=== PATIENT | male | born 1980 | race Caucasian/White ===

== ENCOUNTER 2019-12-10 05:05 | Observation (INO) ==
--- OUTSIDE RECORDS SUMMARY | 2019-12-10 05:07 | External Medical Summary | Continuity of Care Document ---
:1980 Author Name Aditya Rosales, Provider Address Unavailable Unavailable , Care Team Providers Name Role Phone Anaid Dutton Unavailable [email or web address], [email or web address] Unavailable Unavailable Problems Active medical history not documented Allergies and Adverse Reactions Allergy history not documented Medications Medications not documented Procedures Procedures not documented Immunizations Immunizations not documented Plan of Treatment Planned Observations Planned Goals not documented Results No Known Results Results not documented Encounters Appointment; Anaid Barry CRNP 27-Mar-2018 13:15 Encounter Diagnosis: Problem not documented
--- OUTSIDE RECORDS SUMMARY | 2019-12-10 05:08 | External Medical Summary | Continuity of Care Document ---
:1980 Author Name Aditya Rosales, Provider Address Unavailable Unavailable , Care Team Providers Name Role Phone Anaid Dutton Unavailable [email or web address] PCP, UNKNOWN Unavailable Unavailable Problems Active medical [...]
[2019-12-10] MEDS ORDERED: ONDANSETRON INJ 2 MG/ML 2 ML VIAL IV STA (05:30)
[2019-12-10] MEDS ORDERED: SODIUM CHLORIDE 0.9% 1000ML 1,000 ML IV ONE (05:30)
[2019-12-10] MEDS ORDERED: MoRPHine SULFATE 10 MG/ML CARP/VIAL IV STA (05:30)
[2019-12-10 05:49] LABS: Basophils # (auto) 0.02 K/uL (0-0.2); Basophils % (auto) 0.2 %; Eosinophils # (auto) 0.11 K/uL (0-0.5); Eosinophils % (auto) 0.9 %; Hematocrit (blood only) 42.6 % (42-52); Hemoglobin 14.7 g/dL (14.0-18.0); Immature Granulocytes # (auto) 0.03 K/uL (0.00-0.02); Immature Granulocytes % (auto) 0.2 %; Lymphocytes # (auto) 1.39 K/uL (1.2-3.4); Lymphocytes % (auto) 11.6 %; Mean Corpuscular Hemoglobin 29.2 pg (25-34); Mean Corpuscular Hgb Conc 34.5 g/dL (32-36); Mean Corpuscular Volume 84.7 fL (80-100); Mean Platelet Volume 9.3 fL (7.4-10.4); Neutrophils # (auto) 9.87 K/uL (1.4-6.5); Neutrophils % (auto) 82.1 %; Platelet Count 246 K/uL (130-400); RDW Coefficient of Variation 13.5 % (11.5-14.5); RDW Standard Deviation 41.1 fL (36.4-46.3); Red Blood Count 5.03 M/uL (4.7-6.1); White Blood Count 12.02 K/uL (4.8-10.8)
--- NOTE | 2019-12-10 05:55 | Emergency Department Note ---
History of Present Illness General Chief complaint: Abdominal Pain Stated complaint: SEVERE STOMACH PAIN AND BLOATING Time Seen by Provider: 12/10/19 05:12 Source: patient Mode of arrival: ambulatory Limitations: no limitations History of Present Illness Maximum Pain Intensity: 8 This patient is a 39-year-old male who presents to the emergency department for evaluation of abdominal pain. Patient states that he has had abdominal pain and bloating for the past 5 hours. He states that he feels like he has to vomit or have a bowel movement but is unable to do either. He rates his discomfort an 8/10. He states that he has had similar episode of pain in the past, but states it usually subsides after a few hours. He does report an umbilical hernia but states he has not had this checked out as he does not have a primary care provider. He states he ate a normal dinner of noodles last night prior to onset of symptoms. He denies any urinary symptoms, fever/chills, chest pain or shortness of breath. Home Medications Home Medications Medication Instructions Recorded Confirmed Type No Known Home Medications 12/10/19 12/10/19 History Allergies Allergy/AdvReac Type Severity Reaction Status Date / Time No Known Allergies Allergy Verified 12/10/19 05:41 Past Med/Surg History Medical History Anal fistula No significant past medical history Social History Preferred Language: Cape Verdean Feels Safe at Home: Yes Smoking Status: Never smoker Review of Systems A total of 10 systems reviewed and were otherwise negative Physical Exam Vital Signs Vital Signs - 24 hr 12/10/19 05:09 12/10/19 06:11 Temperature 36.7 C Temperature Source Oral Pulse Rate 80 Pulse Rate [Finger] 81 Respiratory Rate 16 18 Respiratory Effort / Characteristics Non-Labored Spontaneous Respiratory Depth Normal Normal Blood Pressure 144/101 H Blood Pressure [Left Arm] 146/91 H Blood Pressure Mean 115 Blood Pressure Mean [Left Arm] 109 Pulse Oximetry 96 94 Oxygen Delivery Method Room Air Room Air Sepsis Recent Fever Within 48 Hours No Sepsis New/Unexplained Change in Mental Status No Sepsis Action Taken by Nursing No Action Required VITALS: Vitals are noted on the nurse's note and reviewed by myself. GENERAL: This is a 39-year-old male, uncomfortable appearing, well-developed well-nourished. SKIN: Warm and dry without rashes. EARS: External auditory canals clear, tympanic membranes pearly montez without e rythema or effusion bilaterally. EYES: Pupils equal round and reactive to light and accommodation. No scleral icterus. MOUTH: Mucous membranes moist. Tonsils are not enlarged. Pharynx without eryth toya or exudate. NECK: Supple without nuchal rigidity. No lymphadenopathy. HEART: Regular rate and rhythm without murmurs gallops or rubs. LUNGS: Clear to auscultation bilaterally without wheezes, rales or rhonchi. ABDOMEN: There is a large, tender and slightly hardened umbilical hernia which is somewhat erythematous/dusky appearing. Hypoactive bowel sounds throughout. Mild tenderness to palpation throughout the abdomen. NEURO: Patient was alert and oriented to person place and time. Course Consultations Consultation #1: Brendon Lutz PA-C - General surgery Administered Medications Ioversol (Optiray 320 100ml) 100 ml IV ONCE PRN PRN Reason: Interaction Checking Stop: 12/14/19 06:07 Last Admin: 12/10/19 06:08 Dose: 93 ml Documented by: [id number] Discontinued Medications Hydromorphone HCl (Dilaudid) 1 mg IV NOW STA Stop: 12/10/19 06:59 Last Admin: 12/10/19 07:05 Dose: 1 mg Documented by: [id number] Sodium Chloride (Nss 1000ml) 1,000 mls @ 999 mls/hr IV .Q1H1M ONE Stop: 12/10/19 06:30 Last Infusion: 12/10/19 07:07 Dose: 0 mls/hr Documented by: [id number] Admin: 12/10/19 06:10 Dose: 999 mls/hr Documented by: [id number] Morphine Sulfate (Morphine Sulfate) 6 mg IV NOW STA Stop: 12/10/19 05:31 Last Admin: 12/10/19 05:51 Dose: 6 mg Documented by: [id number] Ondansetron HCl (Zofran) 4 mg IV NOW STA Stop: 12/10/19 05:31 Last Admin: 12/10/19 05:49 Dose: 4 mg Documented by: [id number] Medical Decision Making Differential Diagnosis Differential diagnosis includes incarcerated hernia, irreducible hernia, bowel obstruction, diverticulitis, appendicitis, gastroenteritis, among others. Home Medications Current Medication List: was personally reviewed by me Laboratory Data Attestation: I reviewed the patient's lab results. Result diagrams: 12/10/19 05:39 12/10/19 05:39 Lab Results 12/10/19 12/10/19 12/10/19 Range/Units 05:39 05:39 05:44 WBC 12.02 H (4.8-10.8) K/uL RBC 5.03 (4.7-6.1) M/uL Hgb 14.7 (14.0-18.0) g/dL POC Hgb 14.6 (14.0-18.0) g/dl Hct 42.6 (42-52) % POC Hct 43 (42-52) % MCV 84.7 (80-100) fL MCH 29.2 (25-34) pg MCHC 34.5 (32-36) g/dL RDW Std Deviation 41.1 (36.4-46.3) fL RDW Coeff of Roxann 13.5 (11.5-14.5) % Plt Count 246 (130-400) K/uL MPV 9.3 (7.4-10.4) fL Immature Gran % (Auto) 0.2 % Neut % (Auto) 82.1 % Lymph % (Auto) 11.6 % Poinsett % (Auto) 5.0 % Eos % (Auto) 0.9 % Baso % (Auto) 0.2 % Immature Gran # (Auto) 0.03 H (0.00-0.02) K/uL Neut # (Auto) 9.87 H (1.4-6.5) K/uL Lymph # (Auto) 1.39 (1.2-3.4) K/uL Poinsett # (Auto) 0.60 H (0.11-0.59) K/uL Eos # (Auto) 0.11 (0-0.5) K/uL Baso # (Auto) 0.02 (0-0.2) K/uL POC Sodium 142 (135-144) mmol/L Sodium 141 (136-145) mmol/L POC Potassium 3.9 (3.3-5.0) mmol/L Potassium 4.0 (3.5-5.1) mmol/L POC Chloride 105 (101-112) mmol/L Chloride 108 H (98-107) mmol/L Carbon Dioxide 29 (21-32) mmol/L POC Total CO2 27 (24-31) mEq/l Anion Gap 5.0 (3-11) POC Anion Gap 15.0 L (16-25) mmol/L POC BUN 19 H (7-18) mg/dl BUN 20 H (7-18) mg/dl Creatinine 1.19 (0.6-1.4) mg/dl POC Creatinine 1.1 (0.6-1.3) mg/dl Est Cr Clr Drug Dosing 92.1 ml/min Est GFR ( Amer) 88.6 Est GFR (Non-Af Amer) 76.5 BUN/Creatinine Ratio 16.9 (10-20) Glucose 117 H (70-99) mg/dl POC Glucose (other) 113 H (70-99) mg/dl Calcium 9.3 (8.5-10.1) mg/dl POC Ioniz Calcium Alivia 1.17 (1.12-1.32) mmol/l Total Bilirubin 0.8 (0.2-1) mg/dl AST 12 L (15-37) U/L ALT 28 (12-78) U/L Alkaline Phosphatase 77 (45-117) U/L Total Protein 8.0 (6.4-8.2) gm/dl Albumin 4.2 (3.4-5.0) gm/dl Globulin 3.8 (2.5-4.0) gm/dl Albumin/Globulin Ratio 1.1 (0.9-2) Lipase 192 (73-393) U/L Imaging Data Attestation: I personally reviewed and interpreted this imaging study as follows: Radiologist's Impression: ABDOMEN AND PELVIS CT WITH IV CONTRAST CT DOSE: 625.91 mGy.cm HISTORY: Acute periumbilical abdominal pain with reported abdominal wall hernia umbilical hernia, abd pain TECHNIQUE: Multiaxial CT images of the abdomen and pelvis were performed following the IV administration of 93 cc of Optiray 320, A dose lowering technique was utilized adhering to the principles of ALARA. COMPARISON STUDY: None. FINDINGS: Minimal bibasilar atelectasis. No pneumatosis or pneumoperitoneum. The imaged inferior cardiac chambers appear unremarkable. Spleen, pancreas, adrenal glands, gallbladder, biliary tree and liver appear unremarkable. 4 mm hypodense focus of the left hepatic lobe on image 84 series 3 is too small to characterize, possibly representing a small cyst. There is patency of the hepatic and portal veins. Kidneys, and ureters are unremarkable. Decompressed urinary bladder. Suggestion of a small fat filled right inguinal hernia. Aorta and IVC are unremarkable. No adenopathy. Moderate sized periumbilical hernia is noted with diastases of 2.6 cm. This contains mesenteric fat and a single inflamed appearing loop of small bowel with marked narrowing of the entering and exiting loops at the level of the hernia ostium. Mild adjacent reactive fluid in the hernia sac. No significant proximal small bowel distention to suggest obstruction. There are a few scattered small bowel air-fluid levels of the mid abdomen. Decompressed ascending and transverse colon. Terminal ileum and appendix are unremarkable. Bones appear intact. Indeterminate 6 mm lucent focus involves the left aspect of the T12 vertebral body on image 148 of series 3. Mild multilevel endplate degeneration and facet arthrosis. Disc space narrowing with posterior disc osteophyte complex is noted at the L5-S1 interspace. IMPRESSION: 1. Moderate sized periumbilical hernia contains mesenteric fat and a single loop of inflamed small bowel with marked narrowing of the entering and exiting small bowel loop. Additionally, there is reactive fluid/edema within the hernia sac. Findings are suspicious for nonreducible hernia with incarceration. Correlate with clinical exam findings. 2. No significant proximal dilation to suggest high-grade obstruction. 3. No pneumatosis or pneumoperitoneum. 4. Normal appendix. 5. Suggestion of a small fat filled right inguinal hernia. Blood Pressure Blood Pressure Findings: Elevated blood pressure Blood Pressure Disposition: elevated BP felt to be situational MDM Narrative The patient is a 39-year-old male who presents today complaining of abdominal pain and bloating. Labs revealed mild leukocytosis 12,000, no anemia or concerning electrolyte abnormalities. Examination as well as CT scan were consistent with an incarcerated umbilical hernia. General surgery was consulted and will evaluate the patient for operative management. Patient received IV analgesics in the emergency department for pain. He was agreeable with the plan of care. Impression & Plan Incarcerated umbilical hernia Discharge Plan Visit Data Chief Complaint: Abdominal Pain Stated Complaint: SEVERE STOMACH PAIN AND BLOATING ED Provider: Wes Clay ED Midlevel Provider: Emelina Ortega Discharge Problem: Incarcerated umbilical hernia Forms Stand Alone Forms: My [facility] Prescriptions Prescriptions: No Action No Known Home Medications RF: 0 Referrals Referrals: PCP,NO [Primary Care Provider] -
[2019-12-10 05:58] LABS: iSTAT Creatinine 1.1 mg/dl (0.6-1.3); iSTAT Hemoglobin 14.6 g/dl (14.0-18.0); iSTAT Ionized Calcium 1.17 mmol/l (1.12-1.32); iSTAT Potassium 3.9 mmol/L (3.3-5.0)
[2019-12-10] MEDS ORDERED: IOVERSOL 100ml IV PRN (06:08)
[2019-12-10 06:14] LABS: Albumin Level 4.2 gm/dl (3.4-5.0); BUN Creatinine Ratio 16.9 (10-20); Calcium 9.3 mg/dl (8.5-10.1); Creatinine Clr Calc Pharmacy 92.1 ml/min; Est GFR (African American) 88.6; Est GFR (Non-African American) 76.5
[2019-12-10 06:17] LABS: Albumin Globulin Ratio 1.1 (0.9-2); Bilirubin,Total 0.8 mg/dl (0.2-1); Globulin 3.8 gm/dl (2.5-4.0)
--- NOTE | 2019-12-10 06:50 | CT Scan Report ---
ABDOMEN AND PELVIS CT WITH IV CONTRAST CT DOSE: 625.91 mGy.cm HISTORY: Acute periumbilical abdominal pain with reported abdominal wall hernia umbilical hernia, ab d pain TECHNIQUE: Multiaxial CT images of the abdomen and pelvis were performed following the IV administrat ion of 93 cc of Optiray 320, A dose lowering technique was utilized adhering to the principles of AL FRANCO. COMPARISON STUDY: None. FINDINGS: Minimal bibasilar atelectasis. No pneumatosis or pneumoperitoneum. The imaged inferior cardiac chambe rs appear unremarkable. Spleen, pancreas, adrenal glands, gallbladder, biliary tree and liver appear unremarkable. 4 mm hypodense focus of the left hepatic lobe on image 84 series 3 is too small to dot acterize, possibly representing a small cyst. There is patency of the hepatic and portal veins. Kidne ys, and ureters are unremarkable. Decompressed urinary bladder. Suggestion of a small fat filled righ t inguinal hernia. Aorta and IVC are unremarkable. No adenopathy. Moderate sized periumbilical hernia is noted with diastases of 2.6 cm. This contains mesenteric fat a nd a single inflamed appearing loop of small bowel with marked narrowing of the entering and exiting loops at the level of the hernia ostium. Mild adjacent reactive fluid in the hernia sac. No significa nt proximal small bowel distention to suggest obstruction. There are a few scattered small bowel air- fluid levels of the mid abdomen. Decompressed ascending and transverse colon. Terminal ileum and appe ndix are unremarkable. Bones appear intact. Indeterminate 6 mm lucent focus involves the left aspect of the T12 vertebral body on image 148 of series 3. Mild multilevel endplate degeneration and facet a rthrosis. Disc space narrowing with posterior disc osteophyte complex is noted at the L5-S1 interspac e. IMPRESSION: 1. Moderate sized periumbilical hernia contains mesenteric fat and a single loop of inflamed small siva wel with marked narrowing of the entering and exiting small bowel loop. Additionally, there is reacti ve fluid/edema within the hernia sac. Findings are suspicious for nonreducible hernia with incarcerat ion. Correlate with clinical exam findings. 2. No significant proximal dilation to suggest high-grade obstruction. 3. No pneumatosis or pneumoperitoneum. 4. Normal appendix. 5. Suggestion of a small fat filled right inguinal hernia. ACT 112: Negative or not required by law. The above report was generated using voice recognition software. It may contain grammatical, syntax o r spelling errors. Electronically signed by: Johnny Buitrago M.D. 12/10/2019 6:49 AM
[2019-12-10] MEDS ORDERED: HYDROmorphone INJ 1 MG/ML SYRINGE IV STA (06:58)
--- NOTE | 2019-12-10 07:26 | History & Physical Report ---
Date of Service December 10, 2019 Assessment & Plan (1) Incarcerated umbilical hernia: Will plan for open repair of incarcerated umbilical hernia this morning. History of Present Illness Primary Care Provider: NO PCP 39 y/o male with umbilical hernia asymptomatic for about 7 years last night became swollen, painful and red. No N/V. Last meal 4 PM yesterday. Allergies Allergy/AdvReac Type Severity Reaction Status Date / Time No Known Allergies Allergy Verified 12/10/19 05:41 Home Medications Home Medications Medication Instructions Recorded Confirmed Type No Known Home Medications 12/10/19 12/10/19 History Past Med/Surg History Medical History Anal fistula No significant past medical history Social History Preferred Language: Mongolian Feels Safe at Home: Yes Smoking Status: Never smoker Review of Systems Constitutional: no fever and no chills Gastrointestinal: + abdominal pain; no nausea, no vomiting, no change in bowel habits and no diarrhea/loose stools Physical Exam Constitutional: WD/WN, vitals as above Respiratory: normal respiratory effort, lungs clear to auscultation Cardiovascular: RRR, no murmur, no edema Gastrointestinal (Abdomen): Inspection/Auscultation: + visible herniation (golf ball sized umbilical hernia, firm, tender, skin erythema) Results & Data Vital Signs (Past 12 Hours) Vital Signs Temp Pulse Pulse Resp BP BP Pulse Ox 12/10/19 06:11 81 18 146/91 H 94 12/10/19 05:09 36.7 C 80 16 144/101 H 96 Supervising Physician Co-Signing Physician Notes Patient seen and examined, labs and imaging reviewed, agree with above. 39-year-old otherwise healthy male with known umbilical hernia noticed increased pain and redness around the area this morning. He presented to the emergency department and had signs of an incarcerated hernia. CT scan was performed and showed a loop of bowel with some edema within the hernia. No lizzie evidence of strangulation. He denies any obstructive symptoms. Slightly elevated white count. On exam he is afebrile with stable vitals. He has an incarcerated umbilical hernia with some mild erythema overlying the hernia but not extending cellulitis. No peritonitis. Incarcerated umbilical hernia Plan for open umbilical hernia repair, possible bowel resection, possible laparoscopy The risk the procedure were discussed to include but not limited to bleeding, infection, recurrence, bowel, need for bowel resection, damage to surrounding structures, need for future more extensive surgery, and the risk of anesthesia The diagnosis, details the procedure recovery, and plan of care discussed the patient, all questions were answered, the patient expressed understanding and agrees with the plan of care as stated PG Care Time/CCT Total # of Minutes Spent Total Time Spent with Patient: Total time spent is greater than 50% in coordination of care (as documented) at patient's floor/unit and/or counseling patient: Coding Level of Care Code 09128 OBS Care - Level 3 Diagnoses Incarcerated umbilical hernia K42.0
[2019-12-10] MEDS ORDERED: LACTATED RINGER'S 1,000 ML IV SCH (07:30)
--- NOTE | 2019-12-10 07:55 | Anesthesiology Consultation ---
Date of Service December 10, 2019 Assessment & Plan (1) Encounter for pre-operative examination: History Surgery Operation Date: 12/10/19 13:00 Proposed Procedures p Open Incarcerated Umbilical Hernia - Colton Delacruz DO, FACS Height/Weight Height: 5 ft 9 in Weight: 89.2 kg Allergies Allergy/AdvReac Type Severity Reaction Status Date / Time No Known Allergies Allergy Verified 12/10/19 05:41 Medications Home Medications Medication Instructions Recorded Confirmed Last Taken No Known Home Medications 12/10/19 12/10/19 Unknown Active Medications Generic Name Dose Route Start Last Admin Trade Name Freq PRN Reason Stop Dose Admin Ioversol 100 ml 12/10/19 06:08 12/10/19 06:08 Optiray 320 100ml IV 12/14/19 06:07 93 ml ONCE PRN Administration Interaction Checking NPO Date Last Intake of Fluids: 12/10/19 Time Last Intake of Fluids: 02:00 Last Intake of Fluids Comment: water Date Last Intake of Solids: 12/09/19 Time Last Intake of Solids: 16:00 Last Intake of Solids Comment: arlene Past Medical History Medical History (Updated 12/10/19 @ 08:57 by Manuela Andrade MD) Anal fistula Asthma As a child No significant past medical history Social History Smoking Status: Never smoker Physical Exam Vital Signs Last Vital Signs Temp 37.2 C 12/10/19 08:28 Pulse 86 12/10/19 08:28 Resp 20 12/10/19 08:28 BP 146/95 H 12/10/19 08:28 Pulse Ox 93 12/10/19 08:28 Testing Laboratory Results 12/10/19 05:39 12/10/19 05:39 12/10/19 05:44 POC Glucose (other) 113 H
[2019-12-10] MEDS ORDERED: MIDAZOLAM HCL 1 MG/ML 2ML VIAL ONE (08:47)
[2019-12-10] MEDS ORDERED: ROCURONIUM BROMIDE 10 MG/ML 5 ML VIAL ONE (08:47)
[2019-12-10] MEDS ORDERED: DEXAMETHASONE SOD INJ 4 MG/ML VIAL ONE (08:47)
[2019-12-10] MEDS ORDERED: fentaNYL citrate 100 MCG/2 ML VIAL ONE (08:47)
[2019-12-10] MEDS ORDERED: SUCCINYLCHOLINE CHLORIDE 20 MG/ML 10 ML VIAL ONE (08:47)
[2019-12-10] MEDS ORDERED: NEOSTIGMINE METHYLSULFATE 5 MG/5 ML SYR ONE (08:47)
[2019-12-10] MEDS ORDERED: LIDOCAINE HCL 2% 2 ML VIAL/AMP(20MG/ML) INFIL ONE (08:47)
[2019-12-10] MEDS ORDERED: ONDANSETRON INJ 2 MG/ML 2 ML VIAL ONE (08:47)
[2019-12-10] MEDS ORDERED: GLYCOPYRROLATE 0.2 MG/ML VIAL ONE (08:47)
[2019-12-10] MEDS ORDERED: PROPOFOL IV EMULSION 10 MG/ML 20 ML VIAL IV ONE (08:47)
[2019-12-10] MEDS ORDERED: HYDROmorphone INJ 1 MG/ML SYRINGE IV PRN (09:02)
[2019-12-10] MEDS ORDERED: fentaNYL citrate 100 MCG/2 ML VIAL IV PRN (09:02)
[2019-12-10] MEDS ORDERED: ATROPINE SULFATE 0.1 MG/ML 10ML SYR IV PRN (09:02)
[2019-12-10] MEDS ORDERED: ePHEDrine sulfate 50 MG/ML AMP IV PRN (09:02)
[2019-12-10] MEDS ORDERED: ONDANSETRON INJ 2 MG/ML 2 ML VIAL IV PRN ×2 (09:02→12:05)
[2019-12-10] MEDS ORDERED: BUPIVACAINE 0.5 % 5 MG/1 ML MPF 30ML VIAL ONE (09:20)
[2019-12-10] MEDS ORDERED: CEFAZOLIN 2,000 MG/15 ML IV PUSH IV ONE (09:24)
[2019-12-10] MEDS ORDERED: CEFAZOLIN 2000MG 2,000 MG/15 ML SYR IV ONE (09:35)
--- NOTE | 2019-12-10 10:25 | Operative Report ---
PG Post Operative Report Pre & Post Diagnosis Operation Date: 12/10/19 13:00 Pre-Op Diagnosis: Incarcerated Umbilical Hernia Post-Op Diagnosis: Incarcerated Umbilical Hernia I identified the patient and participated in the time-out.: Yes Procedure Operation Date: 12/10/19 13:00 Actual Procedures p Diagnostic Laparoscopy, Open Incarcerated Umbilical Hernia with Mesh(Not Applicable) - Colton Delacruz DO, ARIEL Surgeon Colton Delacruz DO, ARIEL Elevator Runner Shad Lutz Estimated Blood Loss 5 Findings Consistent with Post-Op Diagnosis Hernia reduced manually after induction of anesthesia. Diagnostic laparoscopy performed to assess bowel. The bowel showed some signs of inflammation and petechiae, but pinked up quickly and had no evidence of serosal injury or ischemia. Incarcerated umbilical hernia repair performed with 4.3 cm ventralex mesh. Laparoscopy resumed, bowel reassessed and appeared to be viable. Specimens None Anesthesia Type General Complications none Disposition Accompanied Patient To Recovery: No Disposition: Recovery Room Indications 39-year-old male with known umbilical hernia presented to the emergency department with increased pain and bulge in the area. He had an incarcerated umbilical hernia, CT scan showed a loop of bowel was incarcerated in the hernia with some edema. Plan for open umbilical hernia repair, possible laparoscopy, possible bowel resection. The risks of the procedure were discussed, all questions were answered, and the patient agreed to proceed with surgery as planned. Description of Procedure The patient was properly identified, consented, and taken to the operating room where he was placed in the supine position. General endotracheal anesthesia was induced. SCDs and a safety belt were placed. Preoperative antibiotics were administered. After induction the patient's hernia was manually reduced without difficulty. The patient's abdomen was prepped and draped in the standard sterile fashion. Surgical timeout was performed and all parties were in agreement that this was the correct patient and procedure to be performed and we continued as planned. An incision was made in the right upper quadrant and the Veress needle was inserted. Saline drop test confirmed entry into the peritoneum. The abdomen was insufflated with 3 L of carbon dioxide which the patient tolerated without incident. Using the Optiview technique and a 5 mm 30 degree scope a 5 mm port was placed in the right upper quadrant. There is no damage from initial trocar placement. The hernia defect was visible at the umbilicus. A 5 mm port was placed in the right lower quadrant. We identified the section of bowel that was incarcerated within the hernia and this was examined closely. There was some edema and petechiae to the bowel but no evidence of serosal injury. We continue to observe the bowel and it appeared to be peristalsing and continued to improve in color. We then proceeded with the umbilical hernia repair. Laparoscopy was ceased temporarily. A curvilinear infraumbilical incision was made and deepened down to the fascia with blunt dissection. The umbilical stalk was circumferentially dissected off of the hernia sac with Metzenbaum scissors. A 2.5 cm fascial defect was encountered. The hernia was reduced. The fascia anteriorly and posteriorly was cleared of investing tissue for several centimeters. Hemostasis was achieved within the wound. A 4.3 mm piece of ventralex mesh was sown into place with interrupted 0 Nurolon sutures. We then reentered laparoscopically to examine the bowel. The bowel continued to appear viable and we ceased laparoscopy. The 5 mm ports were removed and the abdomen was allowed to collapse. The umbilical wound was irrigated and hemostasis confirmed. The umbilicus was tacked down to the fascia with 3-0 Vicryl sutures. Local anesthetic in the form of 0.5% Marcaine was injected in the fascia and along the skin incision. The skin was closed with interrupted 3-0 Vicryl deep dermal sutures, followed by 4-0 Monocryl running subcuticular suture. The 5 mm port sites were closed with 4-0 Monocryl subcuticular sutures. Dermabond was placed over the wounds. A pressure dressing was applied using a cotton ball and an OpSite. The patient was extubated in the operating room and taken to the PACU where she recovered without apparent incident. All sponge, instrument and needle counts were correct at the conclusion of the procedure. The patient tolerated the procedure well. The physician's volunteer assistant was present and scrubbed for the entire to the case. He was critical in positioning the patient, prepping and draping, reduction of the hernia, driving the laparoscope, retraction and exposure, repair the hernia, closure the incisions, and placement of the dressings. I attest to the content of the Intraoperative Record and any orders documented therein. Any exceptions are noted below.
--- NOTE | 2019-12-10 11:25 | Anesthesiology Progress Note ---
Date of Service December 10, 2019 Anesthesia Post Procedure Vital Signs Vital Signs: Temp Pulse Pulse Pulse Resp BP BP 12/10/19 11:20 68 13 123/85 12/10/19 11:10 37.0 C 71 21 125/75 12/10/19 11:00 70 20 129/80 12/10/19 10:50 70 13 121/80 12/10/19 10:40 36.4 C L 88 12 139/89 12/10/19 08:28 37.2 C 86 20 146/95 H 12/10/19 07:50 94 H 20 132/93 12/10/19 06:11 81 18 146/91 H 12/10/19 05:09 36.7 C 80 16 144/101 H Pulse Ox 12/10/19 11:20 93 12/10/19 11:10 94 12/10/19 11:00 95 12/10/19 10:50 100 12/10/19 10:40 95 12/10/19 08:28 93 12/10/19 07:50 95 12/10/19 06:11 94 12/10/19 05:09 96 Pain Intensity Abdomen: Pain Intensity: 4 Transfer of Care Handoff Completed per policy Notes Mental Status: alert / awake / arousable and participated in evaluation Patient Amnestic to Procedure: Yes Nausea / Vomiting: adequately controlled Pain: adequately controlled Airway Patency, RR, SpO2: stable & adequate BP & HR: stable & adequate Hydration State: stable & adequate Anesthetic Complications: no major complications apparent and Pt Satisfied with anesthetic care
[2019-12-10] MEDS ORDERED: KETOROLAC 30 MG/ML VIAL IV PRN (12:05)
[2019-12-10] MEDS ORDERED: MoRPHine SULFATE 2 MG/ML CARP IV PRN (12:05)
[2019-12-10] MEDS ORDERED: MoRPHine SULFATE 4 MG/ML 1 ML CARP\\VIAL IV PRN (12:05)
[2019-12-10] MEDS: LACTATED RINGER'S 1,000 ML IV SCH ×2 (12:10→21:51)
--- NOTE | 2019-12-11 07:33 | Surgery Progress Note ---
Date of Service December 11, 2019 Assessment & Plan (1) Incarcerated umbilical hernia: POD 1 hernia repair doing well, ok for discharge Subjective no nausea, had regular dinner, little more sore this AM Physical Exam Gastrointestinal (Abdomen): Inspection/Auscultation: + abdominal surgical incision (dry dressing); abdomen not distended Percussion/Palpation: abdomen soft Results & Data Vital Signs (Past 12 Hours) Vital Signs Temp Pulse Resp BP Pulse Ox 12/11/19 04:10 36.7 C 88 18 108/66 94 12/10/19 23:40 36.8 C 79 14 114/67 93 12/10/19 20:13 36.8 C 78 15 117/75 94 PG Care Time/CCT Total # of Minutes Spent Total Time Spent with Patient: Total time spent is greater than 50% in coordination of care (as documented) at patient's floor/unit and/or counseling patient: Coding Level of Care Code None Diagnoses Incarcerated umbilical hernia K42.0
--- NOTE | 2019-12-11 08:17 | Anesthesiology Progress Note ---
Date of Service December 11, 2019 Anesthesia Post Procedure Vital Signs Vital Signs: Temp Pulse Pulse Pulse Resp BP Pulse Ox 12/11/19 07:55 36.8 C 64 16 128/79 93 12/11/19 04:10 36.7 C 88 18 108/66 94 12/10/19 23:40 36.8 C 79 14 114/67 93 12/10/19 20:13 36.8 C 78 15 117/75 94 12/10/19 15:22 36.7 C 79 16 109/67 94 12/10/19 14:55 36.5 C 99 H 20 111/74 92 12/10/19 13:44 36.7 C 88 18 125/78 94 12/10/19 12:47 36.5 C 76 18 114/70 92 12/10/19 12:19 36.5 C 76 19 110/73 92 12/10/19 11:45 36.8 C 69 18 126/76 92 12/10/19 11:20 68 13 123/85 93 12/10/19 11:10 37.0 C 71 21 125/75 94 12/10/19 11:00 70 20 129/80 95 12/10/19 10:50 70 13 121/80 100 12/10/19 10:40 36.4 C L 88 12 139/89 95 12/10/19 08:28 37.2 C 86 20 146/95 H 93 Pain Intensity Abdomen: Pain Intensity: 4 Notes Mental Status: alert / awake / arousable and participated in evaluation Patient Amnestic to Procedure: Yes Nausea / Vomiting: adequately controlled Pain: adequately controlled Airway Patency, RR, SpO2: stable & adequate BP & HR: stable & adequate Hydration State: stable & adequate Anesthetic Complications: no major complications apparent and Pt Satisfied with anesthetic care
--- NOTE | 2019-12-11 09:44 | Discharge Summary ---
Date of Service December 11, 2019 Admission HPI Per Admitting Provider 39 y/o male with umbilical hernia asymptomatic for about 7 years last night became swollen, painful and red. No N/V. Last meal 4 PM yesterday. Principal Diagnosis Incarcerated umbilical hernia Discharge Exam Gastrointestinal (Abdomen) Inspection/Auscultation: + abdominal surgical incision (clean, dry); abdomen not distended Percussion/Palpation: abdomen soft Discharge Data Allergies Allergy/AdvReac Type Severity Reaction Status Date / Time No Known Allergies Allergy Verified 12/10/19 05:41 Consultations 12/10/19 07:08 Consult General Surgery Stat Procedures Performed Operation Date: 12/10/19 13:00 Actual Procedures p Open Incarcerated Umbilical Hernia with Mesh(Not Applicable) - Colton Delacruz DO, FACS s Diagnostic Laparoscopy(Not Applicable) - Colton Delacruz DO, FACS Ordered Studies 12/10/19 05:30 CT abd pelvis IV con only Urgent Hospital Course (1) Incarcerated umbilical hernia: 39 y/o male with long history of umbilical hernia that became symptomatic overnight and came to the ED. He was taken to the OR urgently for repair of incarcerated umbilical hernia. The involved loop a small bowel appeared viable but he was keep overnight for observation. He was doing well the next morning, was tolerating a regular diet and was stable for discharge home. Total Time Total Time Spent Total Time Spent (In Minutes): 10 Discharge Plan Discharge Items Patient Disposition: Home - Self-Care Reason For Visit: SEVERE STOMACH PAIN AND BLOATING Discharge Diagnosis: umbilical hernia repair Activity: Per Instructions section Lifting: No more than 10 pounds Bathing Comment: may shower starting 12/11/19; no soaking in tubs Exercise/Sports: Wait until after follow-up appointment Non-emergency contact: Surgeon Call non-emergency contact if: you have any medication questions, your symptoms worsen, your pain is not controlled, you have a fever, your temperature is above 101.5, your wound has increased redness, your wound has increased drainage and your wound pain has increased Follow-up/Referrals: Colton Delacruz DO, FACS [Physician] - 12/23/19 9:50 am (please call to schedule follow up in clinic within 2 weeks) PCP,NO [Primary Care Provider] - Diet: Regular Addtl Attending Provider Instructions: Pending Studies at Discharge: No Stand-Alone Forms: My [facility], Opioid Pain Management Medications and DC Order Prescriptions: New oxycodone-acetaminophen [Percocet] 5-325 mg tablet 1 - 2 tab PO Q4H PRN (Reason: pain, initial therapy, max 6 daily) Qty: 15 RF: 0 Discharge Orders: Discharge Order (Routine); Ordered 12/11/19 Ordered By: Shad Lutz Jr Admission Data Admit Date/Time: 12/10/19 10:45 Attending Provider: Colton Delacruz Admit Provider: Colton Delacruz Primary Care Provider: PCP,NO Other Providers: Colton Delacruz Other Interventions: Discharge Summary Assessment (RN) Last Done: 12/11/19 09:37 Coding Level of Care Code D/C Day Management <30 mins Diagnoses Incarcerated umbilical hernia K42.0
== END 2019-12-11 10:01 | disposition home or self-care (01) ==
LOC: ED 05:05 → ASU 07:53 → 3N 07:53
DX: K42.0 Umbilical hernia with obstruction, without gangrene